=== PATIENT | male | born 1970 | race African-American/Black ===

== ENCOUNTER 2017-03-24 10:06 | Emergency (ER) | payer SELFPAY ==
[~2017-03-24] VITALS: Ht 172.7 cm; Wt 71.0 kg
[2017-03-24 10:23] VITALS: BP 114/79
== END 2017-03-24 12:45 | disposition home or self-care (01) ==
LOC: ER 12:34
DX: B00.1 Herpesviral vesicular dermatitis (principal); Z20.6 Contact with and (suspected) exposure to human immunodeficiency virus [HIV]; F17.210 Nicotine dependence, cigarettes, uncomplicated
CPT/HCPCS: 99283

== ENCOUNTER 2024-03-17 17:51 | Emergency (ER) | payer BC ==
[~2024-03-17] VITALS: Ht 172.7 cm; Wt 75.0 kg
[2024-03-17 17:56] VITALS: O2SAT 96
[2024-03-17 18:48] LABS: BASOPHILS % 0.2 % (0.0-2.0); EOSINOPHILS % 0.6 % (0.0-5.0); HEMATOCRIT. 39.4 % (42.0-52.0); HEMOGLOBIN. 12.2 g/dL (14.0-18.0); MEAN CORPUSCULAR HEMOGLOBIN 20.8 pg (28.0-32.0); MEAN CORPUSCULAR VOLUME 67.1 fL (80.0-94.0); MEAN PLATELET VOLUME 7.8 fl (7.4-10.4); MONOCYTES % 9.6 % (2.0-8.0); NEUTROPHILS % 72.6 % (40.0-76.0); PLATELET 259 x1000/uL (130-400); RED BLOOD CELL COUNT 5.88 mill/uL (4.7-6.1); RED CELL DISTRIBUTION WIDTH 16.4 % (11.6-14.6); WHITE BLOOD COUNT 12.4 x1000/uL (4.5-11.0)
[2024-03-17 18:52] LABS: ADD RBC MORPHOLOGY YES; DIFFERENTIAL COMMENT 1
[2024-03-17 18:56] LABS: CHLORIDE 103 mEq/L (98-107); POTASSIUM 3.7 mEq/L (3.5-5.1); SODIUM 137 mEq/L (136-145)
[2024-03-17 18:57] LABS: CALCIUM 9.1 mg/dL (8.7-10.4); CARBON DIOXIDE 28 mEq/L (21-32)
[2024-03-17 19:02] LABS: GLUCOSE 102 mg/dL (70-105); UREA NITROGEN BLOOD 22 mg/dL (9-23)
[2024-03-17 19:07] LABS: HYPOCHROMASIA 2+; MICROCYTOSIS 3+; PLATELET ESTIMATE NORMAL
[2024-03-17] MEDS ORDERED: SULF1TAB48 MT (21:35)
[2024-03-17] MEDS ORDERED: CEPH500T MT (21:35)
[2024-03-17] MEDS ORDERED: LIDOCAINE HCL/PF 1% 10 MG/ML 5ML VIAL INFIL ONE (21:45)
[2024-03-17] MEDS ORDERED: BACITRACIN ZINC OINT UDPKT TOP ONE (21:45)
[2024-03-17] MEDS ORDERED: KETOROLAC 15MG/ML VIAL IM ONE (22:00)
[2024-03-17] MEDS ORDERED: LIDOCAINE HCL/PF 1% 10 MG/ML 5ML VIAL INFIL NR (23:45)
[2024-03-17] MEDS: BACITRACIN ZINC OINT UDPKT TOP NR (23:48)
[2024-03-17] MEDS: KETOROLAC 15MG/ML VIAL IM NR (23:54)
[2024-03-17 23:55] VITALS: BP 117/84; PULSE 72; RESP 18; TEMP 98.5
== END 2024-03-18 00:04 | disposition home or self-care (01) ==
LOC: ER 17:51
DX: L02.415 Cutaneous abscess of right lower limb (principal)
CPT/HCPCS: 80048; 85025; 36415; 10060; 96372; 99283; J1885; Z7610